=== PATIENT | female | born 2000 | race Two or more races ===

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

== ENCOUNTER 2018-03-22 18:54 | Emergency (ER) | payer MEDICAID ==
[~2018-03-22] VITALS: Ht 162.6 cm; Wt 88.5 kg
[~2018-03-22 18:54] MED LIST: BACITRACIN-P28.35 GM TP; CEPHALEXIN500 MG ORAL
[2018-03-22] MEDS ORDERED: NKM (19:26)
[2018-03-22 19:43] VITALS: BP 91/51
--- NOTE | 2018-03-22 19:43 | Emergency Room Report ---
History of Present Illness General Chief Complaint: Earache Source: Patient Present Illness HPI 17-year-old female patient presents ER complaining of ear infection at site of ear piercing on left ear lobe. Reports got her ear pierced 2 weeks ago, states she took out the earring 4 days ago and switch to another earring, reports attempted to change the earring again and began to experience symptoms. Reports applied hydrogen peroxide to the area. Reports pain and swelling and redness on left earlobe since that time. Denies fever, chest pain, shortness of breath. Denies vomiting or other related symptoms. Does not know tetanus vaccination status. Allergies: Coded Allergies: No Known Allergies (Unverified , 09/25/17) Patient History Past Medical History: see triage record Last Menstrual Period: unk Now: No - control Reviewed Nursing Documentation: PMH: Agreed; PSxH: Agreed Nursing Documentation-PMH Past Medical History: No Stated History Review of Systems All Other Systems: negative except mentioned in HPI Physical Exam Vital Signs Date Time Temp Pulse Resp B/P (MAP) Pulse Ox O2 Delivery O2 Flow Rate FiO2 03/22/18 19:20 98.0 64 16 91/51 95 Room Air 98.1 Sp02 EP Interpretation: reviewed, normal General Appearance: well appearing, no apparent distress, alert, GCS 15, non- toxic Head: normocephalic, atraumatic Eyes: bilateral eye normal inspection, bilateral eye PERRL ENT: hearing grossly normal, normal pharynx, no angioedema, normal voice, TMs + canals normal, uvula midline, moist mucus membranes, other - left ear lobe: Erythema and edema, no induration, no drainage, no bleeding, crusting and scabbing noted, TTP Neck: full range of motion Respiratory: lungs clear, normal breath sounds, no rhonchi, no respiratory distress, no accessory muscle use, no wheezing, speaking full sentences Cardiovascular #1: regular rate, rhythm, no edema Musculoskeletal: back normal, digits/nails normal, gait/station normal, normal range of motion, non-tender Neurologic: alert, oriented x3, responsive, motor strength/tone normal, sensory intact Psychiatric: mood/affect normal Medical Decision Making PA Attestation Dr. Eason is my supervising Physician whom patient management has been discussed with. Diagnostic Impression: Primary Impression: Cellulitis ER Course Pt. presents to the ED c/o left ear pain Ddx considered but are not limited to otitis media, otitis externa, cellulitis, abscess, abrasion, retained foreign body. Vital signs: are WNL, pt. is afebrile ER COURSE: do not apply hydrogen peroxide to healing wound. physical exam consistent with cellulitis of left earlobe. No red streaking noted. Will clean the ear and apply bacitracin wound. Wound irrigated with copious amount of saline. While irrigating wound, small pocket of dried pus removed from ear showing 1-2 cm open wound. Will pack wound with iodoform packing. Patient started return to ER or go to PCP in 2 days for removal of iodoform packing and wound check. Patient tolerated procedure well without any complications. Keep wound clean and dry. Will discharge patient home with topical and oral antibiotics. Follow-up with primary care provider in 2-3 days for wound check. contacts ENT and plastic surgeon physicians for further treatment, contact information for physicians provided. Complete full course of antibiotics. Return to ER for new or worsening of symptoms. Patient does not know tetanus vaccination status, provided with tdap in ER. DISCHARGE: Rx provided for Keflex Rx provided for Bactroban At this time pt is stable for d/c to home. Patient is resting comfortably, in no acute distress, nontoxic appearing, talking without difficulty. Patient to take medications as instructed Will provide with patient care instructions and any necessary prescriptions. Care plan and follow-up instructions provided. Patient instructed to follow-up with primary care provider in 2-3 days for wound check. Patient questions asked and answered. Patient reports understanding and agreement to treatment plan. ER precautions given. Patient instructed to return to ER immediately for any new or worsening of symptoms including but not limited to increasing SOB, persistent fever, chest pain, intractable vomiting. - Please note that this Emergency Department Report was dictated using Guanghetangbattery plate remover technology software, occasionally this can lead to erroneous entry secondary to interpretation by the dictation equipment. Last Vital Signs Date Time Temp Pulse Resp B/P (MAP) Pulse Ox O2 Delivery O2 Flow Rate FiO2 03/22/18 19:20 98.0 64 16 91/51 95 Room Air 98.1 Disposition: HOME, SELF-CARE Condition: Stable Scripts Cephalexin* (KEFLEX*) 500 Mg Capsule 500 MG ORAL EVERY 12 HOURS, #14 CAP 0 Refills Prov: Thomas Bah P.A. 03/22/18 Mupirocin Calcium (Bactroban) 15 Gm Cream..g. 1 APPLIC TOPIC THREE TIMES A DAY for 7 Days, #15 GM Prov: Thomas Bah 03/22/18 Patient Instructions: Cellulitis, [id number] Additional Instructions: Followup with primary care provider in 2-3 days. Take medications as directed. Patient questions asked and answered. ER precautions given, patient instructed to return to ER immediately for any new or worsening of symptoms. Do not apply hydrogen peroxide to the ear. Do not get ear pierced until infection is cleared. Return to ER for new or worsening of symptoms. Thomas Bah Mar 22, 2018 19:43
[2018-03-22] MEDS ORDERED: Bacitracin Oint UD TOPIC ONE (19:45)
[2018-03-22] MEDS ORDERED: Tetanus/Diptheria/Pertussis Vaccine 0.5ml Syr IM ONE (19:45)
[2018-03-22] MEDS ORDERED: BACTROBAN CR1 APPLIC TOPIC (19:48)
[2018-03-22] MEDS ORDERED: CEPHALEXIN500 MG ORAL (19:48)
[2018-03-22 20:18] VITALS: BP 91/51
== END 2018-03-22 20:20 | disposition home or self-care (01) ==
LOC: EMR 20:00
DX: H60.12 Cellulitis of left external ear (principal); Z23 Encounter for immunization
CPT/HCPCS: 90471; 90715; 99284

== ENCOUNTER 2018-06-14 20:02 | Emergency (ER) | payer MEDICAID ==
[~2018-06-14] VITALS: Ht 162.6 cm; Wt 83.9 kg
[~2018-06-14 20:02] MED LIST changes: +BACTROBAN CR1 APPLIC TOPIC; +NKM
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
[2018-06-14 21:10] VITALS: BP 118/68
[2018-06-14] MEDS ORDERED: IBUPROFEN600 MG ORAL (21:24)
[2018-06-14 22:16] VITALS: BP 115/75
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
== END 2018-06-14 21:30 | disposition home or self-care (01) ==
LOC: EMR 21:17
DX: S00.12XA Contusion of left eyelid and periocular area, initial encounter (principal); Y04.0XXA Assault by unarmed brawl or fight, initial encounter; Y92.511 Restaurant or cafe as the place of occurrence of the external cause
CPT/HCPCS: 70480; 99284

== ENCOUNTER 2019-05-03 11:54 | Emergency (ER) | payer MEDICAID ==
[~2019-05-03] VITALS: Ht 162.6 cm; Wt 74.8 kg
[~2019-05-03 11:54] MED LIST changes: +IBUPROFEN600 MG ORAL
[2019-05-03] MEDS ORDERED: NKM (12:24)
--- NOTE | 2019-05-03 14:05 | Emergency Room Report ---
History of Present Illness General Chief Complaint: Constipation Source: Patient Present Illness HPI 18-year-old female presents to the emergency department complaining of constipation x3 days with very little production when attempting to have a bowel movement. Patient reports very small hard stools she reports spotting some blood on the toilet paper after wiping. Patient reports 9 out of 10 severity acute rectal pain during bowel movements. last bowel movement was this am. Patient denies nausea, vomiting, fevers, chills she denies history of hemorrhoids or constipation. Patient denies personal or familial history of cancer. She denies taking new medications. No other aggravating or relieving factors. Denies black tarry stool. Pt. reports she is able to pass gas. Denies abdominal pain or tenderness. Denies gross blood in the toilet or obvious blood streaks in stool. denies hx of fissures/anal abscess'. Denies suspicion of . Allergies: Coded Allergies: No Known Allergies (Unverified , 09/25/17) Patient History Past Medical History: see triage record Past Surgical History: none Pertinent Family History: none Now: No Reviewed Nursing Documentation: PMH: Agreed; PSxH: Agreed Nursing Documentation-PMH Past Medical History: No Stated History Review of Systems All Other Systems: negative except mentioned in HPI Physical Exam Vital Signs Date Time Temp Pulse Resp B/P (MAP) Pulse Ox O2 Delivery O2 Flow Rate FiO2 05/03/19 12:21 98.2 87 18 109/66 (80) 99 Room Air Sp02 EP Interpretation: reviewed, normal General Appearance: no apparent distress, alert, GCS 15, non-toxic Head: normocephalic, atraumatic Eyes: bilateral eye normal inspection, bilateral eye PERRL ENT: hearing grossly normal, normal voice Neck: full range of motion Respiratory: chest non-tender, lungs clear, normal breath sounds, speaking full sentences Cardiovascular #1: regular rate, rhythm Gastrointestinal: normal bowel sounds, non tender, soft, non-distended, no guarding Rectal: other - NO visible hemorrhoids, no visible blood/bleeding, no visible tears. Genitourinary: normal inspection, no CVA tenderness Musculoskeletal: back normal, gait/station normal, normal range of motion, non- tender Neurologic: alert, oriented x3, responsive, motor strength/tone normal, sensory intact, speech normal, grossly normal Psychiatric: judgement/insight normal Lymphatic: no adenopathy Medical Decision Making PA Attestation Dr. Briceno Is my supervising Physician whom patient management has been discussed with. Diagnostic Impression: Primary Impression: Constipation Qualified Codes: K59.00 - Constipation, unspecified Additional Impression: Internal hemorrhoid, bleeding ER Course 18-year-old female presents to the emergency department complaining of constipation x3 days with very little production when attempting to have a bowel movement. Patient reports very small hard stools she reports spotting some blood on the toilet paper after wiping. Patient reports 9 out of 10 severity acute rectal pain during bowel movements. last bowel movement was this am. Patient denies nausea, vomiting, fevers, chills she denies history of hemorrhoids or constipation. Patient denies personal or familial history of cancer. She denies taking new medications. No other aggravating or relieving factors. Denies black tarry stool. Pt. reports she is able to pass gas. Denies abdominal pain or tenderness. Denies gross blood in the toilet or obvious blood streaks in stool. denies hx of fissures/anal abscess'. Denies suspicion of . Ddx considered but are not limited to constipation , appendicitis, SBO, ectopic , PID, tubo-ovarian abscess, cancer, anal fissure, hemorrhoids, rectal tear. Vital signs: are WNL, pt. is afebrile H&PE are most consistent with constipation. bowl sounds are normo active. Pt. NAD, non-toxic in appearance, benign rectal exam. ORDERS: dx was made clinically ED INTERVENTIONS: None at this time. -I do not identify an emergent condition at this time. With current presentation , pt. is stable for close outpatient follow up and conservative treatment. D/ w pt. to return promptly to ED with worsening or new symptoms.- Pt. verbalizes' understanding and agreement with proposed treatment plan. D/W pt. conservative treatment as outpatient at home with laxative and stool softeners as well as rectal cream. ED return precautions were given and emphasized. DISCHARGE: At this time pt. is stable for d/c to home. Will provide printed patient care instructions, and any necessary prescriptions. Care plan and follow up instructions have been discussed with the patient prior to discharge. Last Vital Signs Date Time Temp Pulse Resp B/P (MAP) Pulse Ox O2 Delivery O2 Flow Rate FiO2 8/23/19 12:21 98.2 87 18 109/66 (80) 99 Room Air Status: improved Disposition: HOME, SELF-CARE Condition: Stable Scripts Lidocaine (Lidocaine) 5 Gm Cream..g. 1 APPLIC TP TID for pain, #5 GM Prov: Doreen De Luna 05/03/19 Hydrocortisone Hc 2.5% Cream (ANUSOL-HC 2.5% CREAM) Y Cr 1 APPLIC RC TID, #30 GM Prov: Doreen De Luna 05/03/19 Docusate Calcium (STOOL SOFTENER) 240 Mg Capsule 240 MG PO TID, #30 CAP Prov: Doreen De Luna 05/03/19 Lactulose (LACTULOSE*) 20 Gm/30 Ml Solution 30 ML ORAL BID, #180 ML 0 Refills Prov: Doreen De Luna 05/03/19 Referrals: [facility] (PCP) Patient Instructions: Constipation, Adult, Hemorrhoids, [id number] Additional Instructions: Take medications as directed. Follow up with a Primary Care Provider in 3-5 days, even if your symptoms have resolved. --Please review list of primary care clinics, if you do not already have a primary care provider Return sooner to ED if new symptoms occur, or current symptoms become worse. - Please note that this Emergency Department Report was dictated using [employer] ironer supervisor technology software, occasionally this can lead to erroneous entry secondary to interpretation by the dictation equipment. Doreen De Luna May 03, 2019 14:05
[2019-05-03] MEDS ORDERED: LIDOCAINE5 GM TP (14:10)
[2019-05-03] MEDS ORDERED: ANUSOL-HC30 GM RC (14:10)
[2019-05-03] MEDS ORDERED: STOOL SOFTENER240 MG PO (14:10)
[2019-05-03] MEDS ORDERED: LACTULOSE20 GM/301 ORAL (14:10)
[2019-05-03 14:18] VITALS: BP 110/68
--- NOTE | 2019-05-03 14:19 | NUR ---
ER DISCHARGE NOTE: Patient is cleared to be discharged per ERMD, pt is aox4, on room air, with stable vital signs. pt was given dc and prescription instructions, pt was able to verbalize understanding, pt is able to ambulate with steady gait. pt took all belongings.
[2019-05-03 14:21] VITALS: BP 110/68
== END 2019-05-03 14:31 | disposition home or self-care (01) ==
LOC: EMR 12:56
DX: K59.00 Constipation, unspecified (principal); K64.8 Other hemorrhoids
CPT/HCPCS: 99283